=== PATIENT | female | born 1995 | race African-American/Black ===

== ENCOUNTER → 2017-12-26 | Outpatient (CLI) | payer OTHER ==
--- NOTE | 2017-12-26 14:18 | Diagnostic Imaging Report ---
PROCEDURE: US Thyroid. TECHNIQUE: Multiple real-time grayscale images were obtained of the thyroid in various projections. INDICATION: Goiter. COMPARISON: No prior studies are available for comparison. FINDINGS: The right lobe of the thyroid measures 5.0 x 1.9 x 1.5 cm and the left lobe measures 5.0 x 1.7 x 1.3 cm. There is a mixed cystic and solid mass identified in the mid and lower pole of the right lobe of the thyroid measuring 2.6 x 1.3 x 1.2 cm. The left lobe is unremarkable. IMPRESSION: Mixed solid and cystic mass right lobe of the thyroid gland. Fine-needle aspiration is likely indicated. Dictated by: Dictated on workstation # [id number]
== END ==
LOC: RAD 13:03
PROVIDERS: ATTEND Nurse Practitioner Family
DX: E04.1 Nontoxic single thyroid nodule (principal); M10.9 Gout, unspecified
CPT/HCPCS: 76536

== ENCOUNTER → 2018-01-17 | Outpatient (CLI) | payer OTHER ==
--- NOTE | 2018-01-18 12:54 | Diagnostic Imaging Report ---
EXAM: Nuclear medicine thyroid imaging and uptake. DATE: 01/18/2018 INDICATION: 22-year-old female, right thyroid nodule. COMPARISON: Thyroid ultrasound, December 26, 2017. FINDINGS: 191 ?Ci of I-123 was administered. Subsequent scintigraphic images of the thyroid were obtained in multiple projections. 4 and 24-hour thyroid uptake rise were obtained. 4 hour thyroid uptake is calculated at 27.4%. 24-hour thyroid uptake is calculated at 50.5%. There is diffuse radiotracer uptake throughout the right and left lobes of the thyroid. There is no identified radiotracer avid or photopenic nodule. Specifically, there is no identified radiotracer avid or photopenic nodule to correlate with the mixed solid and cystic nodule in the right lobe of the thyroid noted on comparison ultrasound. IMPRESSION: 1. The previously noted mixed solid and cystic nodule in the right lobe of the thyroid on recent comparison ultrasound is not radiotracer avid to specifically suggest a benign nodule and is indeterminate in etiology. Ultrasound-guided fine-needle aspiration is recommended. 2. Significantly elevated 4 and 24-hour thyroid uptake values. Dictated by: Dictated on workstation # [id number]
== END ==
LOC: CARD 11:09
PROVIDERS: ATTEND Nurse Practitioner Family
DX: E04.1 Nontoxic single thyroid nodule (principal)
CPT/HCPCS: 78014

== ENCOUNTER → 2018-01-27 | Outpatient (CLI) | payer OTHER ==
--- NOTE | 2018-01-27 14:55 | Diagnostic Imaging Report ---
INDICATION: Right thyroid nodule. FINDINGS: Sonographic guidance was provided for Dr. Coreas for thyroid fine needle aspiration. Images demonstrate a mixed solid and cystic mass involving the right lobe of the thyroid. This was sampled by Dr. Coreas. IMPRESSION: Sonographic guidance for Dr. Coreas for performance of a right thyroid lobe FNA. Dictated by: Dictated on workstation # [id number]
== END ==
LOC: RAD 10:01
PROVIDERS: ATTEND Otolaryngology Otolaryngology/Facial Plastic Surgery
DX: E04.1 Nontoxic single thyroid nodule (principal); E03.9 Hypothyroidism, unspecified
CPT/HCPCS: 76942